=== PATIENT | female | born 1940 | race Caucasian/White ===

== ENCOUNTER → 2021-10-06 | Outpatient (CLI) | payer OTHER ==
[2014-10-19 12:56] VITALS: BP 119/58
--- NOTE | 2021-10-06 15:20 | KCIC ---
XR HIP (WITH OR WITHOUT PELVIS)LEFT 1 VIEW, XR LUMBAR SPINE 4+V Clinical Indication: Reason: Chronic low back pain and hip pain. / Spl. Instructions: / History: Comparison: None. Findings: 5 lumbar type vertebral bodies. No loss of vertebral body height. The alignment is maintained. There is mild degenerative endplate spurring. There is disc space narrowing of L4/L5. Other disc spaces are maintained. There are mild arterial calcifications. There is multilevel facet hypertrophy. Pars defe ct is not seen on the oblique views. 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 There is no acute fracture or dislocation. There are tiny phleboliths in the pelvis. There is moderate colon stool volume. IMPRESSION: 1. 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 2. 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 Electronically signed by: Finesse Dooley MD (10/06/2021 3:18 PM) [id number]
== END ==
LOC: KCIC 10:09
PROVIDERS: ATTEND Family Medicine
DX: M47.816 Spondylosis without myelopathy or radiculopathy, lumbar region (principal); M12.851 Other specific arthropathies, not elsewhere classified, right hip; M12.852 Other specific arthropathies, not elsewhere classified, left hip; I70.8 Atherosclerosis of other arteries; M48.061 Spinal stenosis, lumbar region without neurogenic claudication; M46.06 Spinal enthesopathy, lumbar region; M70.62 Trochanteric bursitis, left hip
CPT/HCPCS: 72110; 73501